=== PATIENT | female | born 1995 | race African-American/Black ===

== ENCOUNTER 2024-12-03 20:55 | Emergency (ER) | payer SELFPAY ==
--- NOTE | ~2024-12-03 | XR_ITS ---
EXAMINATION: XR chest 1V portable 12/04/2024 00:58 INDICATION: Chest discomfort. Dyspnea with exertion. PROCEDURE: AP portable chest COMPARISON: No prior studies for comparison. FINDINGS: The lungs are clear. The cardiomediastinal silhouette is within normal limits. There are no pleural effusions. There is no pneumothorax suspected. IMPRESSION: 1: NO ACUTE CARDIOPULMONARY DISEASE. Reviewed, dictated and finalized at location A.
[2024-12-03 21:05] VITALS: BP 138/80; PULSE 93; RESP 20; TEMP 36.3; O2SAT 100
[2024-12-03 21:43] VITALS: BP 151/90; PULSE 77; RESP 20; O2SAT 100
[2024-12-03 21:46] VITALS: O2SAT 100
[2024-12-03 22:59] VITALS: BP 124/71; PULSE 76; RESP 16; O2SAT 100
--- OUTSIDE RECORDS SUMMARY | 2024-12-03 23:32 | XMS_ITS | Continuity of Care Document ---
Author Organization [facility] Address [address] [place] [id number] Phone Care Team Providers Care Hardware Technician Name Role Phone Yaima Willis APRN Unavailable Unavailable Allergies, Adverse Reactions, Alerts Substance Reaction Status Criticality No Known Allergies Active No Inform ation Procedures Procedure Date OFFICE/OUTPATIENT VISIT EST Coronavirus Antibody Testing OFFICE/OUTPATIENT VISIT NEW Coronavirus Antibody Testing OFFICE/OUTPATIENT VISIT NEW Infectious Agent Detection By Nucleic Ac id Advance Directives Directive Yes / No Effective Date File Name No Information Encounters Encounter Description Practice Location Reason(s) For Visit Diagnoses Date Provider Providers Copied on Encounter OFFICE/OUTPATI ENT VISIT [facility], [address] [place] [address], [id number], tel:[phone] [facility] COVID-19 HPI (chief complaint) Encounter for laboratory testing for COVID-19 virus Alba Erwin. [address] [place] [address], [id number], [place]. tel:[phone] Referring Provider: Yaima Willis, [address] [place] [address], [id number]. tel:[phone] OFFICE/OUTPATI ENT VISIT [facility], [address] [place] [address], [id number], tel:[phone] [facility] COVID-19 HPI (chief complaint) Encounter for laboratory testing for COVID-19 virus Sara Santo. [address] [place], [place], [id number], [place]. tel:[phone] Referring Provider: Hansa Ruiz, [address] [place], [address]. tel:[phone] Family History Family Member Type Diagnosis Age At Onset No Information Payers Payer name Insurance type Covered constitution party ID Authoriza tion(s) No Information Social History Type Description Quantity Date Captured Comments Alcohol Use Details Unknown Caffeine Use Details Unknown Tobacco Use Status No Information Smoking Status No Information Sex Female Vital Signs Date / Time: Height Weight BMI Pulse Rate Blood Pressure Temperature Respiratory Rate Body Surface Area Head Circumference Head Circ. Percentile Wt./[place]. Percentile BMI percentile Pulse Ox Inhaled Ox 10:27 AM 98.60 F Chief Complaint And Reason For Visit From encounter dated 02/20/2020 12:30'. COVID-19 HPI (chief complaint). Description: Screening:Current fever: No.Current cough: No.Exposureto person with lab confirmed positive COVID-19: No.Travel during past two weeks: No.Difficulty breathing: No.Age over 65: No.Additional Info: seen at [place] on 02/20/2020 Reason For Referral Reason For Referral No Information Plan Of Treatment Date Type Action Status Goal Tdap. Due on due Goal HPV (1st). Due on 0 due Goal Influenza vaccine. Due on Oc t due Goal HEALTH RISK ASSESSMENT TEST. Due on due Goal PAP. Due on due Goal Td vaccine. Due on due Goal Dental Referral. Due on due Goal Depression screening. Due on due Goal Diabetes screening. Due on O ct due Goal Influenza vaccine. Due on Se p due Goal HEALTH RISK ASSESSMENT TEST. Due on due Goal PAP. Due on due Goal Td vaccine. Due on due Goal Dental Referral. Due on due Goal Depression screening. Due on due Goal Diabetes screening. Due on due Goal Tdap. Due on due Goal HPV (1st). Due on 0 due History Of Present Illness Encounter Date Complaint History Of Prese nt Illness COVID-19 HPI Screening:Curren t fever: No.Current cough: No.Exposure to person with lab confirmed positive COVID-19: No.Travel during past two weeks: No.Difficulty breathing: No.Age over 65: No.Additional Info: seen at [place] on 02/20/2020 COVID-19 HPI Screening:Curren t fever: No.Current cough: No.Exposure to person with lab confirmed positive COVID-19: No.Travel during past two weeks: No.Difficulty breathing: No.Age over 65: No.Additional Info: seen at [facility] on 01/11/2020 Functional Status Date Functional Assessmen t No Information Instructions Date Instruction Additional Infor nigel No Information Assessments Type Assessment Date assessment Encounter for laboratory testing for COVID-19 virus Patient Care Teams Name Effective Dates (start - stop) Status Members No Information
--- OUTSIDE RECORDS SUMMARY | 2024-12-03 23:32 | XMS_ITS | Clinical Summary ---
Author Organization [facility] [employer] Address [address] [place] [address] Care Team Providers Care Production Artist Name Role Phone Roseline Dupont MD Primary Care Provider [phone] Source Comments [facility],non-owned Affiliates and Associated Physician Practices is amultiple site organization consisting of ambulatory clinics and hospital sitesin [place], [place], [place] and [place]. This disclosure is being madepursuant to the Care Everywhere program and may not contain all information available regarding this patient. Last updated 18.[facility] [employer] Allergies No known active allergies Medications * Be aware that medications may not be up to date on this document. Alwaysverify current medications with the patient. sodium chloride ([place]; Baby [place]) 0.65 % nasal spray [place] 1 (one) spray into each nostril as needed for Dry Nose 07/09/2023 Active white petrolatum (Vaseline) ointment Apply to affected area as needed for Dry Skin 07/09/2023 Active Social History Tobacco Use Types Packs/Day Years Used Date Smoking Tobacco: Never Smokeless Tobacco: Never Tobacco Cessation:Counseling Given: Not Answered Alcohol Use Standard Drinks/Week Comments Yes 0 (1 standard drink = 0.6 oz pur e alcohol) socially AUDIT-C Answer Date Recorded Q1: How often do you have a drink containing alcohol? Never 07/09/2023 Q2: How many drinks containi ng alcohol do you have on a typical day when you are drinking? Patient does not drink Q3: How often do you have si x or more drinks on one occasion? Never 07/09/2023 Comments Unknown Sex and Gender Information Value Date Recorded Sex Assigned at Not on file Legal Sex Female 4:18 AM BUYER Gender Identity Not on file Sexual Orientation Not on file Last Filed Vital Signs Vital Sign Reading Time Taken Comments Blood Pressure 117/81 07/09/2023 6:07 AM BUYER Pulse 107 07/09/2023 4:20 AM BUYER Temperature 36.5 C (97.7 F) 07/09/2023 4:20 AM BUYER Respiratory Rate 19 07/09/2023 4:20 AM BUYER Oxygen Saturation 98% 07/09/2023 6:08 AM BUYER Inhaled Oxygen Concentration - - Weight 60.3 kg (132 lb 14.4 oz) 07/09/2023 4:28 AM BUYER Height 162.6 cm (5' 4) 07/09/2023 4:22 AM BUYER Body Mass Index 22.81 07/09/2023 4:22 AM BUYER Plan of Treatment Health Maintenance Due Date Last Done Comments HIV SCREENING 11/29/2011 HEPATITIS C SCREENING 11/24/2014 DTAP/TDAP/TD VACCINES (1 - Tdap) 11/29/2015 HEPATITIS B VACCINE (1 of 3 - 19+ 3-dose series) 11/29/2015 PAP SMEAR 2017 HPV VACCINE (1 - 3-dose SCDM series) 11/29/2023 COVID-19 VACCINE (1 - 2023-2 5 season) 2024 DEPRESSION SCREENING 05/03/2024 INFLUENZA VACCINE (#1) 2025 ZOSTER VACCINE (1 of 2) 2046 HIB VACCINE Aged Out No longer eligi ble based on patient's age to complete this topic MENINGOCOCCAL (Group B) VACC INE SHARED DECISION-MAKING Aged Out No longer eligibl e based on patient's age to complete this topic MENINGOCOCCAL GROUPS A/C/Y/W VACCINE Aged Out No longer eligible b ased on patient's age to complete this topic PNEUMOCOCCAL VACCINE Aged Out No long er eligible based on patient's age to complete this topic Insurance ANTH Care Teams Production Artist Relationship Specialty Start Date End Date Roseline Dupont MD [address] [place] [address] PCP - General Family Medicine 07/09/23
--- NOTE | 2024-12-03 23:46 | ED.ALLEREA ---
HPI - Allergic Reaction General Chief complaint: Allergic Reaction Stated complaint: Lips swelling-chest tightness. Allergic reaction Time Seen by Provider: 12/03/24 23:05 Source: patient and other Mode of arrival: ambulatory Limitations: no limitations History of Present Illness HPI narrative: Patient presents with report of upper lip swelling. She notes that she has a history of this occurring randomly. She has seen an glass unloading equipment tender for this not undergone skin prick testing. Patient states that yesterday he was her lower lip as well but that subsided and today it just remains the upper lip which seems more swollen than usual. No new medications. Patient is not on an SASCHA-inhibitor. She notes that she did find out that an aunt had this occur when she was younger. Patient is on control. Denies edema. She describes a chest tightness but denies any belia chest pain only and achy sensation with general myalgias. She tried Zyrtec at 1:30 p.m. with no change. She reports feeling a bit winded but denies any shortness of breath at rest. She does have environmental allergies. She notes that she tried a different face wash but this is the only new environmental exposure she can think of. Related Data Allergies Allergy/AdvReac Type Severity Reaction Status Date / Time mold Allergy Intermediate Swelling Verified 12/03/24 20:58 of Lip/Tongue/Throat Grass Allergy Intermediate Swelling Uncoded 12/03/24 21:00 of Lip/Tongue/Throat Trees Allergy Intermediate Swelling Uncoded 12/03/24 20:58 of Lip/Tongue/Throat Exam Narrative: GENERAL: Well-appearing, well-nourished, and in no acute distress. HEAD: Normocephalic, atraumatic. EYES: Non injected, non icteric ENT: Nares clear, no rhinorrhea or epistaxis. Gross auditory acuity intact. Patient has swollen bilateral upper lip, distended but without belia induration or rigidity. No swelling of lower lip or tongue. No swelling underneath tongue. No trismus. NECK: Supple. No meningismus. CHEST: Speaking in full sentences. No respiratory distress. No stridor. HEART: Regular rate and rhythm. ABDOMEN: Soft, nondistended. No rigidity or guarding. Not peritoneal EXTREMITIES: Normal range of motion. No bilateral or unilateral lower extremity edema. SKIN: Warm, dry, no rash. NEURO: No focal deficits. Alert and oriented. Answering questions. Following commands. Normal speech without aphasia or dysarthria. Tongue protrudes midline without deviation PSYCH: Normal mood and affect. Course Vital Signs Vital signs: Vital Signs Temperature 97.4 F L 12/03/24 21:05 Pulse Rate 93 12/03/24 21:05 Respiratory Rate 20 12/03/24 21:05 Blood Pressure 138/80 12/03/24 21:05 Pulse Oximetry 100 12/03/24 21:05 Oxygen Delivery Room Air 12/03/24 21:05 Temperature 97.4 F L 12/03/24 21:05 Pulse Rate 82 12/04/24 03:02 Respiratory Rate 14 12/04/24 03:02 Blood Pressure 128/79 12/04/24 03:02 Pulse Oximetry 99 12/04/24 03:02 Oxygen Delivery Room Air 12/03/24 21:46 MDM - Allergic Reaction MDM Narrative Medical decision making narrative: Patient presents with upper lip swelling. She has had this spontaneously happened before and has seen an glass unloading equipment tender without clear diagnosis. She does have environmental allergies. Possible exposure of a different face wash although notes that this has happened spontaneously before. Not on any Sascha inhibitors and denies having access to anyone else's medications were she could have come in contact with that or accidentally taken it. In the emergency department she is afebrile with vital signs within normal limits Patient is not demonstrating signs and symptoms of anaphylaxis but there is concern for allergic reaction versus angioedema. Will obtain labs including C1 and C4 (though recognize send out) and treat as both in the interim with 125 methylprednisolone, 25mg IV diphenhydramine, and 1g TXA IVP over 10 minutes. BMP without evidence of abnormal renal function. Complement C4 normal. She has a normocytic anemia with no prior for comparison. CRP normal. ESR elevated, non specific. BNP, troponin, CPK within normal limits. Dimer mildly elevated however patient refusing CT scan and : YEARS Algorithm : No Clinical signs of DVT: No Hemoptysis: No PE is most likely diagnosis: No (not tachycardic or hypoxic) D-dimer >1000ng/mL: No Result: PE Excluded, although we did discuss this at bedside. He 1 patient is reassessed she notes that she has not had progression of the swelling and has not developed any new symptoms in the interim. She reports the upper lip swelling seems about the same and while it does appear large, it does seem like it has slightly gone down. Still no induration, stridor, or involvement of other tissue/structures of the face. No other systemic symptoms. Patient is otherwise stable for discharge at this time. Does not currently have a primary care physician but is given a referral to 1 and also notes that she may establish with someone by going through [facility]. Advised that she reach out to/follow-up with her glass unloading equipment tender inform them this happening again. Noted that she could access her patient portal for labs obtained today including result of the send out lab. Although the distribution does appear to be angioedema, out of an abundance of precaution will continue to treat as possible allergic reaction patient is given prescription for course of steroid and diphenhydramine. Given strict emergency department return precautions and she and her friend verified understanding. Otherwise stable for discharge. Differential Diagnosis Differential diagnosis: Likely anaphylaxis, allergic reaction, angioedema and adverse reaction to drug Lab Data Attestation: I reviewed the patient's lab results. 12/04/24 00:12 12/04/24 00:12 Labs: Lab Results 12/04/24 12/04/24 12/04/24 Range/Units 00:12 02:59 03:02 WBC 10.0 (4.5-10.0) K/mm3 RBC 3.94 L (4.2-5.4) M/mm3 Hgb 10.1 L (12.0-15.0) g/dL Hct 32.0 L (37.0-47.0) % MCV 81.2 (80-100) fl MCH 25.6 L (26-34) pg MCHC 31.6 L (32-36) g/dl RDW 14.3 (11.5-14.5) % Plt Count 345 (150-375) k/mm3 MPV 9.1 (7.4-10.4) fl Immature Gran % (Auto) 0.3 (0-0.5) % Neut % (Auto) 70.5 (45.5-73.1) % Lymph % (Auto) 19.6 (18.3-44.2) % [place] % (Auto) 8.9 H (2.6-8.5) % Eos % (Auto) 0.4 (0-4.4) % Baso % (Auto) 0.3 (0.2-1.2) % Lymph # (Auto) 1.96 (0.9-3.2) K/mm3 Eagle # (Auto) 0.9 H (0.1-0.6) K/mm3 Eos # (Auto) 0.0 (0-0.3) K/mm3 Baso # (Auto) 0.0 (0.0-0.1) K/mm3 Abs Immat Gran (auto) 0.03 (0.00-0.031) K/mm3 Absolute Neuts (auto) 7.1 H (1.3-6.7) K/mm3 Absolute Nucleated RBC 0.000 (0.0-0.012) K/mm3 Nucleated RBC % 0.0 (0.0-0.2) % ESR 48 H (0-20) mm/hr D-Dimer 0.90 H (<0.48) ug/mL Sodium 136 L (137-145) mmol/L Potassium 4.6 (3.4-5.0) mmol/L Chloride 109 H (98-107) mmol/L Carbon Dioxide 21 L (22-30) mmol/L Anion Gap 6 (4-12) mmol/L BUN 13 (7-17) mg/dL Creatinine 0.99 (0.7-1.0) mg/dL Estim Creat Clear Calc 65 ml/min Estimated GFR > 60 (59 - ) Glucose 92 (65-110) mg/dL Calcium 9.4 (8.4-10.2) mg/dL Total Creatine Kinase 104 (30-135) U/L Troponin I < 0.012 (0.000-0.034) ng/mL C-Reactive Protein 1.0 (<1.0) mg/dL NT-Pro-B Natriuret Pep 27 (19.9-100) pg/mL Urine Color Yellow (Yellow) Urine Appearance Clear (Clear) Urine pH 6.5 (5.0-9.0) Ur Specific [place] 1.023 (1.001-1.035) Urine Protein Negative (Negative) mg/dL Urine Glucose (UA) Negative (Negative) mg/dL Urine Ketones 1+ H (Negative) mg/dL Ur Blood (Man) Trace (Negative) Urine Nitrate Negative (Negative) Urine Bilirubin Negative (Negative) Urine Urobilinogen 1.0 (<2.0) mg/dL Leukocyte Esterase Rfl Negative (Negative) HELENA/UL Urine RBC 0-2 (0-2) /hpf Urine WBC 0-5 (0-3) /hpf Ur Squamous Epith Cells None seen (Few) /hpf Urine Bacteria None seen /hpf Urine Casts 0-2 POC Urine HCG, Qual Negative (Negative) C1 Esterase Inhibitor Cancelled Complement C4 33.6 (14.0-44.0) mg/dL Miscellaneous Test Pending Imaging Data Attestation: I personally reviewed and interpreted this imaging study as follows: My impression: No acute process on my independent interpretation chest x-ray ECG Data EKG #1: Attestation: I personally reviewed and interpreted this ECG as follows: ECG completion date: 12/04/24 ECG completion time: 01:21 Interpretation: Normal sinus rhythm at a rate of 76 beats per minute. RI interval 148. QRS 92. QT/QTC 382/431. Good R-wave progression across the precordial leads. Normal axis. No T-wave inversions. Normal ECG Discharge Plan Discharge Clinical Impression: Normocytic anemia, Myalgia, Elevated erythrocyte sedimentation rate, Swelling of upper lip Patient Disposition: Home Condition: Stable Instructions: Antibiotic Form, Angioedema (ED), Musculoskeletal Pain (ED), Anemia (ED), General Allergic Reaction (ED) Additional Instructions: As we discussed, I suspect this represents angioedema although it may represent allergic reaction. You received methylprednisolone (steroid), diphenhydramine/Benadryl, and TXA (transamic acid) while in the ED. follow-up with your glass unloading equipment tender. Because you do not have a primary care physician, I recommend you establish with 1. A doctors listed below. Return to the emergency department any new or worsening symptoms. We did obtain a complement C4 level which was 33.6 (normal). The C1 esterase inhibitor lab is a send out lab that can be followed up on through the portal or going through medical records/PCP. Can trial the course steroid and antihistamine in the interim. Patient Language: Irish Prescriptions: New prednisone 20 mg tablet 40 mg PO DAILY 4 Days Qty: 8 0RF Rx Instructions: start 12/04 (received first dose IV 12/03); take before 9am if possible diphenhydramine HCl [Allergy (diphenhydramine)] 25 mg capsule 25 mg PO TID PRN (Reason: allergy symptoms) Qty: 16 0RF Follow-up/Referrals: Karson Gonzales MD [Physician] - PHYSICIAN,RN NEW GRADUATE [Primary Care Provider] - Stand Alone Forms: Work/School Release IP Time of Disposition: 03:26
[2024-12-04 00:24] LABS: Hematocrit 32.0 % (37.0-47.0); Hemoglobin 10.1 g/dL (12.0-15.0); Immature Granulocyte Percent A 0.3 % (0-0.5); Lymphocytes Absolute Auto 1.96 K/mm3 (0.9-3.2); Mean Corpuscular HGB Conc 31.6 g/dl (32-36); Mean Corpuscular Hemoglobin 25.6 pg (26-34); Mean Corpuscular Volume 81.2 fl (80-100); Nucleated Red Blood Cells Absolute Auto 0.000 K/mm3 (0.0-0.012); Nucleated Red Blood Cells Perc 0.0 % (0.0-0.2); Platelet Count Result 345 k/mm3 (150-375); Red Blood Count 3.94 M/mm3 (4.2-5.4); White Blood Count 10.0 K/mm3 (4.5-10.0)
[2024-12-04] MEDS: TRANEXAMIC ACID 1,000 MG/10 ML AMPUL 1000 MG IV PUSH (00:27)
[2024-12-04] MEDS: SODIUM CHLORIDE 0.9% IV 50 ML 100 ML (00:27)
[2024-12-04 00:34] LABS: Anion Gap 6 mmol/L (4-12); Blood Urea Nitrogen 13 mg/dL (7-17); CRP 1.0 mg/dL (<1.0); Calcium 9.4 mg/dL (8.4-10.2); Carbon Dioxide 21 mmol/L (22-30); Chloride 109 mmol/L (98-107); Estimated CRCL calculation 65 ml/min; Estimated Glomerular Filt Rate > 60; Glucose 92 mg/dL (65-110); Potassium 4.6 mmol/L (3.4-5.0); Sodium 136 mmol/L (137-145)
--- NOTE | 2024-12-04 00:42 | ECG_ITS ---
Test Date: 2024-12-04 01:21:49 Measurements Intervals [place] Rate: 76 P: 63 [place]: 148 QRS: 64 QRSD: 92 T: 47 QT: 382 QTc: 431 Interpretive Statements SINUS RHYTHM MINIMAL Q WAVES- INF/LAT LEADS BORDERLINE ECG No previous ECG available for comparison Electronically Signed On 12-04-2024 06:26:11 CDT by Michael Oliva D.O.
[2024-12-04 01:15] LABS: Creatine Kinase 104 U/L (30-135)
[2024-12-04 01:32] LABS: NT Pro B Type Natriuretic Pept 27 pg/mL (19.9-100); Troponin I < 0.012 ng/mL (0.000-0.034)
[2024-12-04 03:02] VITALS: BP 128/79; PULSE 82; RESP 14; O2SAT 99
[2024-12-04 03:04] LABS: BEDSIDEPREGUCG Negative (Negative)
[2024-12-04 03:39] LABS: Add Urine Microscopic? YES; Appearance Urine Clear (Clear); Glucose Urine UA Negative (Negative); Leukocyte Esterase Ur Negative LEU/UL (Negative); Nitrate Urine Negative (Negative); Non Pathogenic Casts 0-2; Specific Grav Ur 1.023 (1.001-1.035)
== END 2024-12-04 03:44 | disposition home or self-care (01) ==
PROVIDERS: Emergency Provider Student in an Organized Health Care Education/Training Program
DX: M79.10 Myalgia, unspecified site (principal); D64.9 Anemia, unspecified; R70.0 Elevated erythrocyte sedimentation rate; R22.0 Localized swelling, mass and lump, head
CPT/HCPCS: 36415; 71045; 80048; 81001; 81025; 82550; 83880; 84484; 85025; 85380; 85652; 86140; 86160; 93005; 96374; 96375; 99284; J1200; J2919